=== PATIENT | female | born 1955 | race Caucasian/White ===

== ENCOUNTER 2017-02-04 13:14 | Day surgery (SDC) | payer OTHER ==
[~2017-02-04] VITALS: Ht 167.6 cm; Wt 86.2 kg
[~2017-02-04 13:14] MED LIST: 0.9% Sodium Chloride 1,000 ML IV SCH; BIOT5000 PO; BLUE5000 MC; BUTT75CA PO; CHOL10008 PO; COD1CAPS6 PO; EVEP1CAP PO; HAWT500C PO; L.AC1CAP6 PO; OLIV250C PO; Sodium Chloride LOK Flush 10 mL Syringe IV PRN; UBID300C PO; VITA200C61 PO; [UNRECOGNIZED DRUG - CODE] PO; fentaNYL-PF 50 mCg/mL 2 mL Inj IVPUSH PRN
[2017-02-04 13:51] VITALS: BP 117/74; PULSE 62; RESP 16; O2SAT 96
[2017-02-04 15:48] VITALS: BP 110/64; PULSE 64; RESP 16; O2SAT 98
--- NOTE | 2017-02-04 15:48 | PCM.ENDCOL ---
Colonoscopy Date of Service: Feb 04, 2017 Physician Tex Savage MD Pre Procedure Diagnosis: Family history of colon cancer Post Procedure Dx & Findings: Polyp hemorrhoids and diverticulosis Procedure Colonoscopy PROCEDURE IN DETAIL: Prep adequate Withdrawal time 15 minutes After unremarkable rectal examination the Olympus video colonoscope was inserted patient's anal canal and was advanced to cecum. Landmarks were identified including the ileocecal valve and appendiceal orifice. Scope was withdrawn systematically. Visualized colonic mucosa showed healthy shiny mucosa with normal healthy-appearing vasculature. In the sigmoid colon there was a one centimeter polyp which is removed completely using hot snare. In the sigmoid colon, there are several small diverticuli. In the rectum retroflexion was done which showed hemorrhoids. Anal canal was inspected carefully on the way out and hemorrhoids noted. Impression Polyp times one. Complete removal. 1 cm. Diverticuli Hemorrhoids Recommendation Repeat colonoscopy 3 years Diverticular diet Presedation Assessment Risks and Benefits Informed consent was obtained from the patient after all risks and benefits including but not limited to drug reaction, infection, pain, bleeding, perforation, as well as alternatives were discussed. Patient monitoring Continuous pulse oximetry, cardiac monitoring, blood pressure monitoring, IV access, and oxygen at 2L per nasal cannula. Periprocedural Fentanyl: Fentanyl 125mcg Incrementally Midazolam: Midazolam 6mg Incrementally Complications There were no periprocedural complications identified. Post Procedure Plan Post Procedure Recommendations 1. Restrict activities today. 2. Resume normal activities in the morning. 3. Resume medications. 4. Patient informed of normal post procedure side effects as bloating, drowsiness, blood streaking in the stool. 5. average risk CRCS. If colon polyps come back as: -Hyperplastic- can repeat colonoscopy in 10 years -Tubular adenoma- repeat colonoscopy in 5 years -Tubulovillous/villous adenoma- repeat colonoscopy in 3 years -If any dysplasia- return to clinic as soon as possible 6. Please don't hesitate to call me with any questions. Tex Savage MD Feb 04, 2017 15:47
[2017-02-04 15:57] VITALS: BP 120/74; PULSE 72; RESP 14; O2SAT 98
--- NOTE | 2017-02-07 12:09 | PATH ---
SURGICAL PATHOLOGY Attending Physician:Tex Savage M.D. CASE STATUS: Signed Out PATIENT NAME: MICHAEL DEJESUS PID: [id number] : 1955 DATE COLLECTED:02/04/2017 00:00 SPECIMEN: Colon, Polyp CLINICAL HISTORY: 1). SIGMOID POLYP X1 FINAL DIAGNOSIS: 1.SIGMOID COLON POLYP, BIOPSY: Tubular adenoma with minor villous component. As part of routine quality nurse the case was also reviewed by Dr. Epps who agrees with the above interpretation. ICD10 D12.6 GROSS DESCRIPTION: The specimen is received in one formalin filled container labeled with the patient's name, sublabeled "sigmoid polyp x1" and consists of a 0.5 x 0.5 x 0.4 CM portion of tissue which is entirely submitted in one cassette. 02/05/2017DC MICRO DESCRIPTION: See diagnosis. ICD-9 CODES: CPT CODES: 1: 61061 Electronically Signed Out Luis Maldonado MD [facility] [address], [place] [address] Technical component performed at [facility], [facility] [address], [address]
== END 2017-02-04 23:59 | disposition home or self-care (01) ==
LOC: END 13:14
PROVIDERS: ATTEND Internal Medicine
DX: Z12.11 Encounter for screening for malignant neoplasm of colon (principal); Z80.0 Family history of malignant neoplasm of digestive organs; D12.5 Benign neoplasm of sigmoid colon; K64.9 Unspecified hemorrhoids; K57.30 Diverticulosis of large intestine without perforation or abscess without bleeding; K21.9 Gastro-esophageal reflux disease without esophagitis; E55.9 Vitamin D deficiency, unspecified; Z90.710 Acquired absence of both cervix and uterus
CPT/HCPCS: 45385; 99153; G0500; J2250; J3010; J7030